=== PATIENT | female | born 2000 | race African-American/Black ===

== ENCOUNTER 2021-10-15 09:35 | Emergency (ER) | payer SELFPAY ==
[~2021-10-15] VITALS: Ht 160 cm; Wt 54.4 kg
[2021-10-15] MEDS ORDERED: ONDANSETRON ODT 4 MG TAB PO ONE (10:45)
[2021-10-15 11:24] LABS: Urine Bacteria NONE SEEN /hpf (None Seen); Urine Blood Negative /uL (Negative); Urine Mucus FEW (None Seen); Urine Specific Gravity 1.019 (1.001-1.035); Urine WBC 4 /hpf (0 - 5)
[2021-10-15 12:00] LABS: BUN/Creatinine Ratio 5.3; Potassium 4.4 mmol/L (3.5-5.1)
[2021-10-15 12:08] LABS: Bilirubin, Total 0.3 mg/dL (0.2-1.0); Total Protein 8.2 g/dL (6.4-8.2)
[2021-10-15] MEDS ORDERED: NITR-87 PO (12:18)
[2021-10-15] MEDS ORDERED: ONDA-144 PO (12:18)
[2021-10-15 12:20] VITALS: BP 108/65
== END 2021-10-15 12:49 | disposition home or self-care (01) ==
LOC: ER 09:35
DX: N39.0 Urinary tract infection, site not specified (principal); R11.2 Nausea with vomiting, unspecified; F12.10 Cannabis abuse, uncomplicated
CPT/HCPCS: 36415; 80053; 81001; 84702; 99283; Q0162

== ENCOUNTER 2023-10-23 13:31 | Emergency (ER) | payer MEDICAID ==
[~2023-10-23] VITALS: Ht 160 cm; Wt 51.8 kg
[~2023-10-23 13:31] MED LIST: NITR-87 PO; ONDA-144 PO
[2023-10-23 14:24] VITALS: BP 110/68; PULSE 80; RESP 16; O2SAT 100
[2023-10-23 18:08] LABS: Urine Bacteria FEW /hpf (None Seen); Urine Blood 2+ /uL (Negative); Urine Clarity Clear (Clear); Urine Color Light-Yellow (Yellow); Urine Protein, UAD TRACE (Negative); Urine Specific Gravity 1.006 (1.001-1.035); Urine Urobilinogen Normal (Negative); Urine WBC <1 /hpf (0 - 5)
== END 2023-10-23 18:04 | disposition left against medical advice (07) ==
LOC: ER 13:31
DX: R10.2 Pelvic and perineal pain (principal); R42 Dizziness and giddiness; R11.0 Nausea; Z53.21 Procedure and treatment not carried out due to patient leaving prior to being seen by health care provider
CPT/HCPCS: 81001

== ENCOUNTER 2024-01-15 12:35 | Emergency (ER) | payer MEDICAID ==
[~2024-01-15] VITALS: Ht 160 cm; Wt 55.1 kg
[2024-01-15 13:37] VITALS: BP 105/78; PULSE 88; RESP 18; TEMP 98.8; O2SAT 100
[2024-01-15] MEDS ORDERED: IBUP1TAB5 PO (14:23)
[2024-01-15] MEDS ORDERED: PENI500T2 PO (14:23)
[2024-01-15] MEDS ORDERED: METH4PAK PO (14:23)
[2024-01-15] MEDS ORDERED: LIDO2SOL26 MT (14:23)
[2024-01-15] MEDS ORDERED: ACET-1882 PO (14:23)
== END 2024-01-15 14:37 | disposition home or self-care (01) ==
LOC: ER 12:35
DX: J03.90 Acute tonsillitis, unspecified (principal); R07.0 Pain in throat; F15.90 Other stimulant use, unspecified, uncomplicated; Z79.899 Other long term (current) drug therapy